=== PATIENT | male | born 1970 | race Caucasian/White ===

== ENCOUNTER 2017-07-16 09:14 | Emergency (ER) | payer OTHER ==
--- NOTE | 2017-07-16 09:39 | ER Document Report ---
ED General - General Chief Complaint: Skin Problem Stated Complaint: RT FOOT PAIN Time Seen by Provider: 07/16/17 09:39 TRAVEL OUTSIDE OF THE [place] IN LAST 30 DAYS: No - HPI Patient complains to provider of: Cellulitis Notes: Normally healthy man no chronic medical condition presents with an area of cellulitis on the lateral aspect of his right calf. About 2 inches round. Pain is 8/10 burning in nature without radiation. Started approximately 2 days ago gotten worse and worse. Patient denies all other constitutional symptoms. - Related Data Allergies/Adverse Reactions: No Known Allergies Allergy (Unverified 07/16/17 09:16) Past Medical History - Social History Smoking Status: Never Smoker Chew tobacco use (# tins/day): No Frequency of alcohol use: Occasional Drug Abuse: None Family History: Reviewed & Not Pertinent Patient has suicidal ideation: No Patient has homicidal ideation: No Renal/ Medical History: Denies: Hx Peritoneal Dialysis Past Surgical History: Reports: Hx Orthopedic Surgery - left knee, back Review of Systems - Review of Systems Notes: REVIEW OF SYSTEMS: CONSTITUTIONAL: -fevers, -chills EENT: -eye pain, -difficulty swallowing, -nasal congestion CARDIOVASCULAR: -chest pain, -syncope. RESPIRATORY: -cough, -SOB GASTROINTESTINAL: -abdominal pain, -nausea, -vomiting, -diarrhea GENITOURINARY: -dysuria, -hematuria MUSCULOSKELETAL: -back pain, -neck pain SKIN: Positive for area of rash HEMATOLOGIC: -easy bruising or bleeding. LYMPHATIC: -swollen, enlarged glands. NEUROLOGICAL: -altered mental status or loss of consciousness, -headache, - neurologic symptoms PSYCHIATRIC: -anxiety, -depression. ALL OTHER SYSTEMS REVIEWED AND NEGATIVE. Physical Exam - Vital signs Vitals: Temp Pulse Resp BP Pulse Ox 98.1 F 84 16 143/86 H 97 07/16/17 09:23 07/16/17 09:23 07/16/17 09:23 07/16/17 09:23 07/16/17 09:23 - Notes Notes: PHYSICAL EXAMINATION: GENERAL: Well-appearing, well-nourished and in no acute distress. HEAD: Atraumatic, normocephalic. EYES: Pupils equal round and reactive to light, extraocular movements intact, sclera anicteric, conjunctiva are normal. ENT: nares patent, oropharynx clear without exudates. Moist mucous membranes. NECK: Normal range of motion, supple without lymphadenopathy LUNGS: Breath sounds clear to auscultation bilaterally and equal. No wheezes rales or rhonchi. HEART: Regular rate and rhythm without murmurs ABDOMEN: Soft, nontender, normoactive bowel sounds. No guarding, no rebound. No masses appreciated. EXTREMITIES: Normal range of motion, no pitting or edema. No cyanosis. NEUROLOGICAL: Cranial nerves grossly intact. Normal speech, normal gait. Normal sensory and motor exams. PSYCH: Normal mood, normal affect. SKIN: Small area of erythema 2 inch circular region blanching painful to touch, no fluctuance noted, negative for abscess Course - Re-evaluation Re-evalutation: 07/16/17 09:47 Well-appearing man presents with area of cellulitis in his right calf. No need for incision and drainage at this time will initiate Bactrim therapy. Encourage soaks. Wound will be dressed in the emergency department with bacitracin and gauze. - Vital Signs Vital signs: Temp Pulse Resp BP Pulse Ox 98.1 F 84 16 143/86 H 97 07/16/17 09:23 07/16/17 09:23 07/16/17 09:23 07/16/17 09:23 07/16/17 09:23 Discharge - Discharge Clinical Impression: Cellulitis Condition: Good Disposition: HOME, SELF-CARE Instructions: MRSA Cellulitis ([facility]) Additional Instructions: See your PCP in a few days
[2017-07-16] MEDS ORDERED: BACITRACIN ZINC OINTMENT 15 GM TP ONE (09:42)
[2017-07-16 09:56] VITALS: BP 133/83
== END 2017-07-16 10:10 | disposition home or self-care (01) ==
LOC: ER 09:14
DX: L03.115 Cellulitis of right lower limb (principal)
CPT/HCPCS: 99283; J3490

== ENCOUNTER 2018-02-27 10:52 | Emergency (ER) | payer OTHER ==
--- NOTE | 2018-02-27 11:58 | RADIOLOGY REPORT (SQ) ---
EXAM DESCRIPTION: HUMERUS LEFT COMPLETED DATE/TIME: 02/27/2018 11:34 am REASON FOR STUDY: fall injury fell off of a ladder, old in twisted left arm and shoulder COMPARISON: None. NUMBER OF VIEWS: Two views. TECHNIQUE: Two radiographic images were acquired of the left humerus to include elbow and shoulder i n at least one projection. LIMITATIONS: None. FINDINGS: MINERALIZATION: Normal. BONES: No acute fracture or dislocation. No worrisome bone lesions. SOFT TISSUES: Biceps muscle is bunched up in the arm, question distal biceps tendon tear OTHER: No other significant finding. IMPRESSION: No left humerus fracture. Question distal biceps tendon tear, biceps muscle is bunched up TECHNICAL DOCUMENTATION: JOB ID: [id number] [employer]- All Rights Reserved Reading location - IP/workstation name: [email or web address]
[2018-02-27] MEDS ORDERED: HYDROCODONE/ACETAMINOPHEN 5-325 MG TABLET PO ONE (12:41)
--- NOTE | 2018-02-27 12:46 | ER Document Report ---
HPI - HPI Pain Level: 5 Notes: Patient is a 47-year-old male who presents with chief complaint of left upper arm pain. Patient reports he was doing some work to his house just prior to arrival when he slipped off a ladder and tried catching himself with his arm creating a sudden over stretching of his arm. Past Medical History - General Information source: Patient - Social History Smoking Status: Never Smoker Frequency of alcohol use: None Drug Abuse: None Family History: Reviewed & Not Pertinent - Medical History Medical History: Negative Renal/ Medical History: Denies: Hx Peritoneal Dialysis Past Surgical History: Reports: Hx Orthopedic Surgery - left knee, back - Immunizations Immunizations up to date: Yes Vertical Provider Document - CONSTITUTIONAL Notes: PHYSICAL EXAMINATION: GENERAL: Well-appearing, well-nourished and in no acute distress. HEAD: Atraumatic, normocephalic. EYES: Pupils equal round extraocular movements intact, conjunctiva are normal. ENT: Nares patent NECK: Normal range of motion LUNGS: No respiratory distress Musculoskeletal: Limited range of motion to left upper extremity, large amount of swelling noted around bicep area. 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 Cap refill less than 3 seconds. NEUROLOGICAL: Normal speech, normal gait. PSYCH: Normal mood, normal affect. SKIN: Warm, Dry, normal turgor, no rashes or lesions noted. - INFECTION CONTROL TRAVEL OUTSIDE OF THE [place] IN LAST 30 DAYS: No Course - Re-evaluation Re-evalutation: Radiologist report says no left humerus fracture, questionable distal biceps tendon tear as biceps muscle is bunched up. This is consistent with patient's physical examination. 02/27/18 12:46 Called and spoke with Dr. Chávez who would like to see patient in the office on Thursday. Patient will be given analgesics and be placed in an arm sling until then. - Vital Signs Vital signs: Temp Pulse Resp BP Pulse Ox 98.9 F 112 H 20 176/102 H 97 02/27/18 10:55 02/27/18 10:55 02/27/18 10:55 02/27/18 10:55 02/27/18 10:55 Procedures - Immobilization Left arm Immobilizer type: Sling Discharge - Discharge Clinical Impression: Biceps tendon tear Condition: Stable Disposition: HOME, SELF-CARE Additional Instructions: It appears as though you have torn your biceps tendon. Please use the sling for comfort and support. Take ibuprofen 600 mg every 6 hours. Use the narcotic pain medication for severe pain. Please follow-up with orthopedics on Thursday morning. Call them for an appointment. Tell them that we consulted them over the weekend from the emergency department. Dr. Chávez wants to see you on Thursday. Prescriptions: Hydrocodone/Acetaminophen [Hydrocodon-Acetaminophen 5-325] 1 each PO Q4H #12 tablet Forms: Return to Work Referrals: DENIS RAMON MD [ACTIVE STAFF] - Follow up as needed
[2018-02-27 13:07] VITALS: BP 126/83
== END 2018-02-27 13:07 | disposition home or self-care (01) ==
LOC: ER 10:52
DX: S46.212A Strain of muscle, fascia and tendon of other parts of biceps, left arm, initial encounter (principal); X50.0XXA Overexertion from strenuous movement or load, initial encounter; Y93.E8 Activity, other personal hygiene; Y92.009 Unspecified place in unspecified non-institutional (private) residence as the place of occurrence of the external cause
CPT/HCPCS: 99283

== ENCOUNTER → 2018-03-08 | Outpatient (CLI) | payer OTHER ==
[2018-03-08 16:19] LABS: ABSOLUTE EOSINOPHILS # (AUTO) 0.1 10^3/uL (0.0-0.6); ABSOLUTE MONOCYTES (AUTO) 0.6 10^3/uL (0.1-1.4); BASOPHILS % (AUTO) 0.8 % (0-2); EOSINOPHILS % (AUTO) 1.7 % (0-6); HEMATOCRIT 43.1 % (37.9-51.0); HEMOGLOBIN 14.9 g/dL (13.5-17.0); LYMPHOCYTES % (AUTO) 35.3 % (13-45); MEAN CORPUSCULAR HEMOGLOBIN 31.5 pg (27.0-33.4); MEAN CORPUSCULAR HGB CONC 34.5 g/dL (32.0-36.0); MEAN CORPUSCULAR VOLUME 91 fl (80-97); PLATELET COUNT 271 10^3/uL (150-450); RED BLOOD COUNT 4.73 10^6/uL (4.35-5.55); RED CELL DISTRIBUTION WIDTH 12.8 % (11.5-14.0); SEGMENTED NEUTROPHILS % (AUTO) 52.2 % (42-78); TOTAL CELLS COUNTED % (AUTO) 100 %; WHITE BLOOD COUNT 5.7 10^3/uL (4.0-10.5)
[2018-03-08 16:40] LABS: ANION GAP 13 (5-19); BLOOD UREA NITROGEN 16 mg/dL (7-20); CALCIUM 9.5 mg/dL (8.4-10.2); CARBON DIOXIDE 25 mmol/L (22-30); CHLORIDE 103 mmol/L (98-107); GLUCOSE 94 mg/dL (75-110); POTASSIUM 4.6 mmol/L (3.6-5.0); SODIUM 140.8 mmol/L (137-145)
--- NOTE | 2018-03-08 21:55 | EKG REPORT ---
SEVERITY:- BORDERLINE ECG - SINUS RHYTHM BORDERLINE T ABNORMALITIES, INFERIOR LEADS : Confirmed by: Paige Faust MD 08-Mar-2018 21:54:49
== END ==
LOC: OD 14:21
PROVIDERS: ATTEND Orthopaedic Surgery
DX: Z01.810 Encounter for preprocedural cardiovascular examination (principal); Z01.812 Encounter for preprocedural laboratory examination; Z01.818 Encounter for other preprocedural examination
CPT/HCPCS: 36415; 80048; 85025; 93005; 93010

== ENCOUNTER 2020-02-04 07:42 | Emergency (ER) | payer OTHER ==
--- NOTE | 2020-02-04 08:16 | ER Document Report ---
ED General - General Stated Complaint: RIGHT EYE PAIN Time Seen by Provider: 02/04/20 08:15 Primary Care Provider: DENIS RAMON MD [ACTIVE STAFF] - Follow up in 3-5 days IAIN BLOOM MD [ACTIVE STAFF] - Follow up tomorrow (or Thursday) TRAVEL OUTSIDE OF THE [place] IN LAST 30 DAYS: No - HPI Notes: 49-year-old male presents emergency room for complaints of right eye pain for the last 2 weeks, feels that he has a's foreign body in his eye. Was seen by his primary care provider on Thursday, they did see something in his eye and they recommended him put saline drops in his eyes every 2 hours. He states he has been doing that but has not been helping. Patient does not wear contacts does not wear glasses. Thinks that he has had his tetanus updated in the last 5 years. Patient states that it bothers him intermittently. Denies any fevers or chills, denies any exudates from his eye. Denies any photophobia. Has not been seen by an eye doctor for this issue. Denies fevers, chills, chest p ain,palpitations, shortness of breath, dyspnea, nausea, vomiting, diarrhea, abdominal pain, hematuria,blurred vision, double vision, loss of vision, speech changes, LH, dizziness, syncope, headaches, wheezing, ST, URI, neck pain, weakness, bowel or bladder dysfunction, saddle anesthesia, numbness or tingling in bilateral upper or lower extremities equally, muscle paralysis, weakness in bilateral upper or lower extremities equally or rash. Denies IV drug use. MEDICATIONS: I agree with the patient medications as charted by the RN. ALLERGIES: I agree with the allergies as charted by the RN. PAST MEDICAL HISTORY/PAST SURGICAL HISTORY: Reviewed and agree as charted by RN. SOCIAL HISTORY: Reviewed and agree as charted by RN. FAMILY HISTORY: No significant familial comorbid conditions directly related to patient complaint EXAM: Reviewed vital signs as charted by RN. REVIEW OF SYSTEMS:reviewed vital signs by RN CONSTITUTIONAL : Denies fever, chills, or sweats. Denies recent illness. EENT: Reports eye irritation to right eye. denies ear, throat, or mouth pain or symptoms. Denies nasal or sinus congestion or discharge. Denies throat, tongue, or mouth swelling or difficulty swallowing. CARDIOVASCULAR: Denies chest pain. Denies palpitations or racing or irregular heart beat. Denies ankle edema. RESPIRATORY: Denies cough, cold, or chest congestion. Denies shortness of valdo ath, difficulty breathing, or wheezing. GASTROINTESTINAL: Denies abdominal pain or distention. Denies nausea, vomiting, or diarrhea. Denies blood in vomitus, stools, or per rectum. Denies black, tarry stools. Denies constipation. GENITOURINARY: Denies difficulty urinating, painful urination, burning, frequency, blood in urine, or discharge. MUSCULOSKELETAL: Denies back or neck pain or stiffness. Denies joint pain or swelling. SKIN: Denies rash, lesions or sores. HEMATOLOGIC : Denies easy bruising or bleeding. LYMPHATIC: Denies swollen, enlarged glands. NEUROLOGICAL: Denies confusion or altered mental status. Denies passing out or loss of consciousness. Denies dizziness or lightheadedness. Denies headache. Denies weakness or paralysis or loss of use of either side. Denies problems with gait or speech. Denies sensory loss, numbness, or tingling. Denies seizures. PSYCHIATRIC: Denies anxiety or stress. Denies depression, suicidal ideation, or homicidal ideation. ALL OTHER SYSTEMS REVIEWED AND NEGATIVE. Dictation was performed using [employer] voice recognition software PHYSICAL EXAMINATION: GENERAL: Well-appearing, well-nourished and in no acute distress. HEAD: Atraumatic, normocephalic. EYES: Pupils equal round and reactive to light, extraocular movements intact, sclera anicteric, conjunctiva are normal. Fluostain wnl. PERRLA, normal accommodation, EMOI, peripheral vision bilaterally and equally. no exudates noted. red reflex wnl. fluostain negative for corneal abrasion, foreign body, dendrites, or ulcer. Normal fundi and optic discs. Corneas grossly clear. No nystagmus bilaterally. No ptosis, photophobia. ENT: Nares patent, oropharynx clear without exudates. Moist mucous membranes. NECK: Normal range of motion, supple without lymphadenopathy LUNGS: Breath sounds clear to auscultation bilaterally and equal. No wheezes rales or rhonchi. HEART: Regular rate and rhythm without murmurs ABDOMEN: Soft, nontender, nondistended abdomen. No guarding, no rebound. No masses appreciated. Musculoskeletal: Normal range of motion, no pitting or edema. No cyanosis. NEUROLOGICAL: Cranial nerves grossly intact. Normal speech, normal gait. Normal sensory, motor exams PSYCH: Normal mood, normal affect. SKIN: Warm, Dry, normal turgor, no rashes or lesions noted. - Related Data Allergies/Adverse Reactions: No Known Allergies Allergy (Verified 02/04/20 08:21) Past Medical History - General Information source: Patient - Social History Smoking Status: Unknown if Ever Smoked Family History: Reviewed & Not Pertinent Renal/ Medical History: Denies: Hx Peritoneal Dialysis Past Surgical History: Reports: Hx Orthopedic Surgery - left knee, back - Immunizations Immunizations up to date: Yes Physical Exam - Vital signs Vitals: Temp Pulse Resp BP Pulse Ox 98.0 F 84 16 150/88 H 95 02/04/20 07:48 02/04/20 07:48 02/04/20 07:48 02/04/20 07:48 02/04/20 07:48 - HEENT Visual acuity- Right eye: 20/20 Visual acuity- Left eye: 20/25 Visual acuity- Both eyes: 20/20 Corrective lenses worn: Yes Course - Re-evaluation Re-evalutation: 02/04/20 09:44 Afebrile vital stable no distress. Nurses notes reviewed. On fluorescein stain, did not see any foreign body, no corneal abrasions. When patient blinked I did see some lint on his eyelid and tried to remove with a saturated Q-tip. He states he fell felt some irritation. Patient received a 500 mL bolus through [facility] Behzad lens for eye irrigation. On reevaluation with fluorescein, no foreign body was seen, no corneal abrasion. Patient states that his eye did feel better, states he did remove a piece of lint from his eye after the Behzad lens. Discussed with patient that we will treat him with prophylactic antibiotics, warm compress to site 20 minutes on 20 minutes off several times a day it is recommended that he follow-up with the golf course architect within the next 24 to 48 hours, and also use Systane eye ointment every 2 hours for his eye irritation. Patient verbalized understanding of this plan of care and agree with plan of care. After performing a Medical Screening Examination, I estimate there is LOW risk for a RETAINED CORNEAL or LID FOREIGN BODY, DEEP SPACE INFECTION (e.g., ORBITAL CELLULITIS OR ABSCESS), ACUTE GLAUCOMA, PENETRATING GLOBE INJURY, RETINAL DETACHMENT, or MENINGITIS thus I consider the discharge disposition reasonable. I have reevaluated this patient multiple times and no significant life threatening changes are noted. Also, there is no evidence or peritonitis, sepsis, or toxicity. The patient and I have discussed the diagnosis and risks, and we agree with discharging home with outpatient follow-up with the understanding that symptoms and presentations can change. We also discussed returning to the Emergency Department immediately if new or worsening symptoms occur. We have discussed the symptoms which are most concerning (e.g., changing or worsening pain, vision changes, neck stiffness or fever) that necessitate immediate return. - Vital Signs Vital signs: Temp Pulse Resp BP Pulse Ox 97.9 F 65 18 118/80 98 02/04/20 10:18 02/04/20 10:18 02/04/20 10:18 02/04/20 10:18 02/04/20 10:18 Discharge - Discharge Clinical Impression: Foreign body in eye Condition: Stable Disposition: HOME, SELF-CARE Additional Instructions: Conjunctival Foreign Body There was a foreign body in your eye. It's now out of the eye, but your eye may be irritated until completely healed. No treatment is required after removal of the typical foreign body. However, if the particle was deeply embedded, or if infection has already set in, antibiotics may be necessary. Do not drive or operate machinery while the eye is patched. Please remove the patch just prior to your re-examination. Call the doctor or return for re-evaluation if the eye becomes more painful, vision decreases, or if there is discharge from the eye. I recommend buying Systane eye ointment to put in your right eye. Put 1/2 inch ribbon of the ointment to the lower conjunctive every 2 hours as needed Please follow-up with golf course architect within the next 24 to 48 hours for reevaluation. Prescriptions: Ofloxacin [Ocuflox] 5 ml OP TID 7 Days #1 bottle Referrals: IAIN BLOOM MD [ACTIVE STAFF] - Follow up tomorrow (or Thursday) DENIS RAMON MD [ACTIVE STAFF] - Follow up in 3-5 days
[2020-02-04] MEDS ORDERED: TETRACAINE HCL 0.5% OPH SOLN 4 ML OU ONE (08:55)
[2020-02-04] MEDS ORDERED: NORMAL SALINE 1000 ML 1,000 ML IV ONE (08:56)
[2020-02-04 10:22] VITALS: BP 118/80
== END 2020-02-04 10:21 | disposition home or self-care (01) ==
LOC: ER 07:42
DX: T15.91XA Foreign body on external eye, part unspecified, right eye, initial encounter (principal); H57.11 Ocular pain, right eye; X58.XXXA Exposure to other specified factors, initial encounter
CPT/HCPCS: 99284; J7030; J3490